=== PATIENT | female | born 1990 | race Caucasian/White ===

== ENCOUNTER 2019-05-23 12:22 | Outpatient (CLI) | payer BC, MEDICAID ==
[~2019-05-23] VITALS: Ht 165.1 cm; Wt 112.7 kg
[~2019-05-23 12:22] MED LIST: ASPI-535 PO; METH250T5 PO; PREN-93 PO
[2019-05-23 12:29] VITALS: Ht 165.1 cm; Wt 112.7 kg
--- NOTE | 2019-05-23 15:29 | TRIAGE ---
OB Triage Datetime Report Generated by CPN: 05/23/2019 15:29 Datetime: 05/23/2019 15:00 Maternal Assessment Level of Consciousness: Keenly Alert, Responsive DTR's/Clonus: DTRs 1+ Headache: Denies Blurred Vision: No Respiratory Effort: Unlabored Breath Sounds, Left: Clear and Equal Breath Sounds, Right: Clear and Equal Nausea/Vomiting: Denies RUQ Epigastric Pain: Denies Facial Edema: None Labor Evaluation Frequency: NONE Monitor Mode: External Resting Tone [place]: Relaxed Heart Rate FHR Baseline Rate: 135 Monitor Mode: External US Variability: Moderate 6-25 bpm Accelerations: 15X15 Decelerations: None Category: Category I Pain Assessment Pain Scale: 0 Pain Presence: None/Denies Pain Type: N/A Pain Goal: 3 Vaginal Exam Membrane Status: Intact Datetime: 05/23/2019 14:00 Stage of : OB Triage Maternal Assessment Level of Consciousness: Keenly Alert, Responsive DTR's/Clonus: DTRs 1+ Headache: Denies Breath Sounds, Left: Clear and Equal Breath Sounds, Right: Clear and Equal Nausea/Vomiting: Denies RUQ Epigastric Pain: Denies Labor Evaluation Frequency: NONE Monitor Mode: External Resting Tone [place]: Relaxed Heart Rate FHR Baseline Rate: 135 Monitor Mode: External US Variability: Moderate 6-25 bpm Accelerations: 15X15 Decelerations: None Pain Assessment Pain Scale: 0 Pain Presence: None/Denies Pain Type: N/A Pain Goal: 3 Vaginal Exam Membrane Status: Intact Datetime: 05/23/2019 13:58 Stage of : OB Triage Datetime: 05/23/2019 13:00 Stage of : OB Triage Maternal Assessment Level of Consciousness: Keenly Alert, Responsive DTR's/Clonus: DTRs 1+ Headache: Denies Breath Sounds, Left: Clear and Equal Breath Sounds, Right: Clear and Equal Nausea/Vomiting: Denies RUQ Epigastric Pain: Denies Labor Evaluation Frequency: NONE Monitor Mode: External Resting Tone [place]: Relaxed Heart Rate FHR Baseline Rate: 135 Monitor Mode: External US Variability: Moderate 6-25 bpm Accelerations: 15X15 Decelerations: None Category: Category I Pain Assessment Pain Scale: 0 Pain Presence: None/Denies Pain Type: N/A Pain Goal: 3 Vaginal Exam Membrane Status: Intact Datetime: 05/23/2019 12:57 Stage of : OB Triage Datetime: 05/23/2019 12:26 Stage of : OB Triage Datetime: 05/23/2019 12:11 Time of Arrival: 05/23/2019 12:11 EGA: 36.0 Arrived By: Ambulatory Arrived From: Office Chief Complaint: PT CAME IN FROM OFFICE TO HAVE NST AND BPP FOR CHTN Movement: Present Contractions: Denies/Absent Rupture of Membranes: Denies Vaginal Discharge: Denies Recent Sexual Intercouse: Denies Abdominal Trauma: Not Applicable Additional Patient Complaints: NONE Time Provider Notified: 05/23/2019 12:40 Provider Notified: ANISA Initial Plan: NST AND BPP
--- NOTE | 2019-05-23 16:36 | PN ---
Triage Information Date/Time Reason for visit: Hx of preeclampsia for NST BPP Weeks of Gestation 36+ /Para n/a Diabetes: none Hypertention: none Objective Heart Rate: 140's Contractions: None Results/Medications Result Diagram: 05/23/19 1430 05/23/19 1430 Results 24 hrs Laboratory Tests Test 05/23/19 14:30 White Blood Count 7.7 Red Blood Count 3.79 L Hemoglobin 11.4 L Hematocrit 34.1 L Mean Corpuscular Volume 90.0 Mean Corpuscular Hemoglobin 30.1 Mean Corpuscular Hemoglobin Concent 33.4 Red Cell Distribution Width 12.6 Platelet Count 184 Mean Platelet Volume 11.3 H Immature Granulocytes % 0.400 Neutrophils % 68.6 Lymphocytes % 20.8 Monocytes % 7.8 Eosinophils % 2.1 Basophils % 0.3 Nucleated Red Blood Cells % 0.0 Immature Granulocytes # 0.030 Neutrophils # 5.3 Lymphocytes # 1.6 Monocytes # 0.6 Eosinophils # 0.2 Basophils # 0.0 Nucleated Red Blood Cells # 0.0 Prothrombin Time 12.1 Prothrombin Time Ratio 0.9 INR International Normalized Ratio 0.89 Activated Partial Thromboplast Time 29.3 Urine Color YELLOW Urine Clarity SLIGHTLY CLOUDY A Urine pH 6.0 Urine Specific Clear 1.013 Urine Ketones TRACE A Urine Nitrite NEGATIVE Urine Bilirubin NEGATIVE Urine Urobilinogen NEGATIVE Urine Leukocyte Esterase TRACE A Urine Microscopic RBC 1 Urine Microscopic WBC 4 Urine Squamous Epithelial Cells MODERATE Urine Mucus FEW A Urine Hemoglobin NEGATIVE Urine Glucose 1+ H Urine Total Protein NEGATIVE Sodium Level 138 Potassium Level 4.1 Chloride Level 110 Carbon Dioxide Level 19 L Anion Gap 9 Blood Urea Nitrogen 8 Creatinine 0.41 L Est Glomerular Filtrat Rate mL/min > 60 Glucose Level 76 Uric Acid 2.9 L Calcium Level 8.9 Total Bilirubin 0.3 Direct Bilirubin 0.00 Indirect Bilirubin 0.3 Aspartate Amino Transf (AST/SGOT) 37 Alanine Aminotransferase (ALT/SGPT) 16 Alkaline Phosphatase 148 H Total Protein 6.3 Albumin 3.2 L Globulin 3.10 Albumin/Globulin Ratio 1.03 Disposition: Discharge Assessment/Plan No Headache No blurry Vision No Epigastric pain PIH Panel WNL Questions answered Precautions discussed Management as Per Provider Discharged with precautions SEAN UMANA M.D. May 23, 2019 16:36
== END 2019-05-23 15:20 | disposition home or self-care (01) ==
LOC: OBT 12:22 → L-D 12:23 → OBT 15:20
PROVIDERS: ATTEND Obstetrics & Gynecology
DX: O16.3 Unspecified maternal hypertension, third trimester (principal); Z3A.36 36 weeks gestation of pregnancy
CPT/HCPCS: 76818; 80053; 81001; 84560; 85025; 85610; 85730

== ENCOUNTER 2019-05-26 18:20 | Outpatient (CLI) | payer BC ==
[~2019-05-26] VITALS: Ht 165.1 cm; Wt 115.2 kg
[2019-05-26 18:28] VITALS: Ht 165.1 cm; Wt 115.2 kg
[2019-05-26 18:29] VITALS: BP 119/76; PULSE 83
--- NOTE | 2019-05-26 21:06 | PN ---
Date/Time of Note Date/Time of Note DATE: 05/26/19 TIME: 21:02 OB Subjective Subjective Subjective 28 y old G2 P 0 IUP 36 3 r/o preeclampsia no headache, no blurred vision OB Objective HEENT: WNL Heart: Rhythm Normal Abdomen: WNL Extremities: Normal OB Assessment/Plan Reason for admission: other (R/O preeclampsia) Other plan: lab results reviewed BP results reviewed BPP 05/25 percationts are given D/C home with 24 hour urine protein collection 1 week follow up ERIC SHEPPARD MD May 26, 2019 21:06
--- NOTE | 2019-05-26 22:15 | TRIAGE ---
OB Triage Datetime Report Generated by CPN: 05/26/2019 22:15 Datetime: 05/26/2019 21:49 Stage of : OB Triage Labor Evaluation Frequency: X2 Monitor Mode: External Duration (sec)2399: 60-80 Quality: Mild Pattern: Normal: <= 5 Contractions in 10 Minutes Resting Tone [place]: Relaxed Heart Rate FHR Baseline Rate: 135 Monitor Mode: External US Variability: Moderate 6-25 bpm Accelerations: 15X15 Decelerations: None Category: Category I Datetime: 05/26/2019 21:00 Stage of : OB Triage Labor Evaluation Frequency: X0 Monitor Mode: External Duration (sec)2399: X0 Pattern: Normal: <= 5 Contractions in 10 Minutes Resting Tone [place]: Relaxed Heart Rate FHR Baseline Rate: 135 Monitor Mode: External US Variability: Moderate 6-25 bpm Accelerations: 15X15 Decelerations: None Category: Category I Datetime: 05/26/2019 19:55 Stage of : OB Triage Labor Evaluation Frequency: x2 Monitor Mode: External Duration (sec)2399: 80 Quality: Mild Pattern: Normal: <= 5 Contractions in 10 Minutes Resting Tone [place]: Relaxed Heart Rate FHR Baseline Rate: 135 Monitor Mode: External US Variability: Moderate 6-25 bpm Accelerations: 15X15 Decelerations: None Category: Category I Datetime: 05/26/2019 18:36 Stage of : OB Triage Assessment Type: Triage Maternal Assessment Level of Consciousness: Keenly Alert, Responsive DTR's/Clonus: DTRs 2+; No Clonus Headache: Denies Blurred Vision: No Respiratory Effort: Unlabored; Regular Rhythm; Equal Expansion Breath Sounds, Left: Clear and Equal Breath Sounds, Right: Clear and Equal Nausea/Vomiting: Denies RUQ Epigastric Pain: Denies Lower Extremities Edema: Bilateral Lower Extremities Degree: 1+ Upper Extremities Edema: None Degree: None Facial Edema: None Temperature Route: Oral Fall Risk Assessment History of Falling: (0) No Secondary Diagnosis: (0) No Ambulatory Aid: (0) Bedrest/Nurse Assist IV Therapy: (0) No Gait: (0) Normal/Bedrest/Immobile Mental Status: (0) Oriented to Own Ability Fall Score: 0 Fall Risk Score Definition: No Risk: No action required Labor Evaluation Frequency: x1 Monitor Mode: External Duration (sec)2399: 50 Quality: Mild Resting Tone [place]: Relaxed Heart Rate FHR Baseline Rate: 135 Monitor Mode: External US FHR Baseline Changes: No Baseline Change Variability: Moderate 6-25 bpm Accelerations: 15X15 Decelerations: None Category: Category I Pain Assessment Pain Scale: 0 Pain Presence: None/Denies Pain Type: N/A Datetime: 05/23/2019 15:20 Time of Arrival: 05/26/2019 18:05 EGA: 36.3 Arrived By: Ambulatory Arrived From: Home Chief Complaint: F/U elevated BPs Movement: Present Contractions: Denies/Absent Rupture of Membranes: Denies Vaginal Bleeding: None Vaginal Discharge: Denies Recent Sexual Intercouse: Denies Abdominal Trauma: Not Applicable Patient Complaints: None Time Provider Notified: 05/26/2019 18:45 Provider Notified: Dr Church Initial Plan: NST Datetime: 05/23/2019 12:11 EGA: 36.0
== END 2019-05-26 21:58 | disposition home or self-care (01) ==
LOC: OBT 18:20 → L-D 18:22 → OBT 21:58
PROVIDERS: ATTEND Obstetrics & Gynecology
DX: O14.93 Unspecified pre-eclampsia, third trimester (principal); Z3A.36 36 weeks gestation of pregnancy
CPT/HCPCS: 76818; 80053; 81003; 84560; 85025; Z7500; G0463

== ENCOUNTER 2019-06-21 19:54 | Inpatient (IN) | payer BC ==
[~2019-06-21] VITALS: Ht 165.1 cm; Wt 116.4 kg
[~2019-06-21 19:54] MED LIST changes: +IBUP-1542 PO; +METH250T21 PO; +[UNRECOGNIZED DRUG - OTHER] XX
[2019-06-21 22:58] VITALS: BP 140/84; PULSE 80; RESP 18; Ht 165.1 cm; Wt 116.4 kg
[2019-06-21] MEDS ORDERED: CARBOPROST 250 MCG INJ IM PRN (23:00)
[2019-06-21] MEDS ORDERED: MISOPROSTOL 200 MCG TAB PR PRN (23:00)
[2019-06-21] MEDS ORDERED: BUTORPHANOL 2 MG INJ IV PRN ×2 (23:00)
[2019-06-21] MEDS ORDERED: OXYTOCIN 30 UNITS/LR 500 ML IV SCH ×2 (23:00)
[2019-06-21] MEDS ORDERED: METHYLERGONOVINE 0.2 MG INJ IM PRN (23:00)
[2019-06-21] MEDS ORDERED: OXYTOCIN 30 UNITS/LR 500 ML IV PRN (23:00)
[2019-06-21] MEDS ORDERED: LIDOCAINE 1% (MPF) 30 ML INJ INJ PRN (23:00)
[2019-06-21] MEDS: LACTATED RINGER'S 1,000 ML IV SCH (23:41)
[2019-06-21] MEDS: MISOPROSTOL 50 MCG CAPSULE PO PRN (23:59)
[2019-06-22] MEDS: LACTATED RINGER'S 1,000 ML IV SCH ×3 (01:20→08:08)
[2019-06-22] MEDS: METHYLDOPA 250 MG TAB PO SCH ×2 (01:20→09:18)
[2019-06-22] MEDS: MISOPROSTOL 50 MCG CAPSULE PO SCH ×3 (01:20→12:28)
[2019-06-22] MEDS: MISOPROSTOL 50 MCG CAPSULE PO PRN (04:13)
[2019-06-22] MEDS ORDERED: CEFAZOLIN 2 GM/50 ML (PMX) 50 ML IVPB SCH (20:00)
[2019-06-22] MEDS ORDERED: AZITHROMYCIN 500MG/NS (PMX) 250 ML IV SCH (20:00)
[2019-06-22] MEDS ORDERED: CITRIC ACID/NA CITRATE 30 ML CUP ONE (20:46)
[2019-06-22] MEDS ORDERED: ONDANSETRON 4 MG INJ ONE ×2 (20:46→20:54)
[2019-06-22] MEDS ORDERED: OXYTOCIN 30 UNITS/LR 500 ML BAG IV ONE (20:53)
[2019-06-22] MEDS ORDERED: KETOROLAC 30 MG INJ ONE (20:54)
[2019-06-22] MEDS ORDERED: DEXAMETHASONE 4 MG/ML 1 ML INJ ONE (20:54)
[2019-06-22] MEDS ORDERED: PHENYLephrine (100 MCG/ML) 10ML SYG ONE (20:54)
[2019-06-22] MEDS ORDERED: morphine SULFATE/PF (10 MG/10 ML) INJ ONE (20:54)
[2019-06-22] MEDS ORDERED: METOCLOPRAMIDE 10 MG INJ ONE (20:54)
[2019-06-22] MEDS ORDERED: OXYTOCIN 10 UNIT INJ ONE (20:54)
[2019-06-22] MEDS ORDERED: CITRIC ACID/NA CITRATE 30 ML CUP PO ONE (21:00)
[2019-06-22] MEDS ORDERED: ONDANSETRON 4 MG INJ IV ONE (21:00)
[2019-06-22] MEDS ORDERED: morphine 2 MG INJ IV PRN ×2 (22:30)
[2019-06-22] MEDS ORDERED: DIPHENHYDRAMINE 50 MG INJ IV PRN (22:30)
[2019-06-22] MEDS ORDERED: ONDANSETRON 4 MG INJ IV PRN (22:30)
[2019-06-22] MEDS ORDERED: NALBUPHINE HCL (10 MG/1 ML) INJ IV PRN (22:30)
[2019-06-22] MEDS ORDERED: HYDROCODONE/APAP (5/325) TAB PO PRN (22:30)
[2019-06-22] MEDS ORDERED: ACETAMINOPHEN 500 MG TAB PO PRN (22:30)
[2019-06-22] MEDS ORDERED: NALOXONE (0.4 MG/ML) INJ IV PRN (22:30)
[2019-06-22] MEDS ORDERED: KETOROLAC 30 MG INJ IV PRN (22:30)
[2019-06-22] MEDS ORDERED: HYDROmorphONE 0.5 MG/0.5 ML SYG IV PRN ×2 (22:30)
[2019-06-23] MEDS ORDERED: LACTATED RINGER'S 1,000 ML IV SCH (00:14)
[2019-06-23] MEDS ORDERED: OXYTOCIN 30 UNITS/LR 500 ML IV SCH (00:14)
[2019-06-23] MEDS ORDERED: CEFAZOLIN 1 GM/50 ML (PMX) 50 ML IVPB SCH (00:30)
[2019-06-23] MEDS ORDERED: METHYLERGONOVINE 0.2 MG INJ IM PRN (00:30)
[2019-06-23] MEDS ORDERED: OXYCODONE/ACETAMINOPHEN (5/325) TAB PO PRN ×2 (00:30)
[2019-06-23] MEDS ORDERED: ONDANSETRON 4 MG INJ IV PRN (00:30)
[2019-06-23] MEDS ORDERED: MAGNESIUM HYDROXIDE 30ML CUP PO PRN (00:30)
[2019-06-23] MEDS ORDERED: ACETAMINOPHEN 325 MG TAB PO PRN (00:30)
[2019-06-23] MEDS ORDERED: CARBOPROST 250 MCG INJ IM PRN (00:30)
[2019-06-23] MEDS ORDERED: BISACODYL 10 MG SUPP PR PRN (00:30)
[2019-06-23] MEDS ORDERED: LANOLIN HPA 1 PKT TOP PRN (00:30)
[2019-06-23] MEDS ORDERED: SENNA/DOCUSATE NA (8.6MG/50MG) TAB PO PRN (00:30)
[2019-06-23] MEDS ORDERED: MISOPROSTOL 200 MCG TAB PR PRN (00:30)
[2019-06-23] MEDS ORDERED: OXYTOCIN 30 UNITS/LR 500 ML IV PRN (00:30)
[2019-06-23 01:34] VITALS: BP 136/77; PULSE 71; RESP 20
[2019-06-23 04:00] VITALS: BP 136/82; PULSE 87; RESP 19
[2019-06-23] MEDS: CEFAZOLIN 1 GM/50 ML (PMX) 50 ML IVPB SCH ×3 (04:48→20:29)
[2019-06-23 08:25] VITALS: BP 121/73; PULSE 80; RESP 18
[2019-06-23] MEDS: METHYLDOPA 250 MG TAB PO SCH ×2 (10:41→21:21)
[2019-06-23 11:45] VITALS: BP 118/67; PULSE 88; RESP 19
[2019-06-23 16:05] VITALS: BP 107/66; PULSE 91; RESP 18
[2019-06-23] MEDS: LACTATED RINGER'S 1,000 ML IV SCH ×3 (16:16→22:59)
[2019-06-23 20:00] VITALS: BP 117/69; PULSE 97; RESP 19
[2019-06-24] MEDS: IBUPROFEN 600 MG TAB PO PRN ×4 (00:42→22:11)
[2019-06-24 04:00] VITALS: BP 117/78; PULSE 90; RESP 19
[2019-06-24] MEDS: LACTATED RINGER'S 1,000 ML IV SCH ×3 (06:59→15:53)
[2019-06-24 08:55] VITALS: BP 127/77; PULSE 84; RESP 18
[2019-06-24] MEDS: METHYLDOPA 250 MG TAB PO SCH ×2 (09:48→21:49)
[2019-06-24 11:52] VITALS: BP 137/89; PULSE 89; RESP 19
[2019-06-24 15:55] VITALS: BP 128/85; PULSE 107; RESP 18
[2019-06-24 20:35] VITALS: BP 134/92; PULSE 105; RESP 19
[2019-06-25 04:00] VITALS: BP 128/90; PULSE 98; RESP 18
[2019-06-25] MEDS: IBUPROFEN 600 MG TAB PO PRN ×2 (05:57→11:54)
[2019-06-25 08:00] VITALS: BP 133/83; PULSE 84; RESP 18
[2019-06-25] MEDS: METHYLDOPA 250 MG TAB PO SCH (09:14)
[2019-06-25] MEDS ORDERED: MEASLES,MUMPS,RUBELLA VACCINE INJ SC* ONE (12:00)
[2019-06-25] MEDS ORDERED: DIPHTH/TET/ACEL PERTUSS (ADULT) 0.5 ML VIAL IM* ONE (12:00)
[2019-06-25 16:00] VITALS: BP 135/85; PULSE 80; RESP 20
== END 2019-06-25 17:30 | disposition home or self-care (01) | DRG 787 ==
LOC: OBT 19:54 → L-D 19:55 → OBT 22:50 → L-D 06-22 02:21 → PP1 06-23 01:32
PROVIDERS: ADMIT Obstetrics & Gynecology; ATTEND Obstetrics & Gynecology
PROC: 10D00Z1 Extraction of Products of Conception, Low, Open Approach (ICD-10-PCS; principal; 2019-06-23)
PROC: 3E033VJ Introduction of Other Hormone into Peripheral Vein, Percutaneous Approach (ICD-10-PCS; 2019-06-23)
DX: O48.0 Post-term pregnancy (principal); O10.92 Unspecified pre-existing hypertension complicating childbirth; Z3A.40 40 weeks gestation of pregnancy; O76 Abnormality in fetal heart rate and rhythm complicating labor and delivery; O99.214 Obesity complicating childbirth; O14.94 Unspecified pre-eclampsia, complicating childbirth; Z37.0 Single live birth
CPT/HCPCS: 76815; 76818; 80053; 80307; 81001; 82575; 84156; 84560; 85025; 85610; 85730; 86592; 86703; 86803; 86850; 86900; 86901; 87340; 88307; 90715; 99464; G0463; J0456; J0595; J0690; J1100; J1885; J2274; J2370; J2405; J2590; J2765; J7120